=== PATIENT | male | born 1995 | race Two or more races ===

== ENCOUNTER 2019-02-09 11:29 | Inpatient (IN) | payer SELFPAY ==
[~2019-02-09] VITALS: Ht 154.9 cm; Wt 72.6 kg
[2019-02-09] MEDS ORDERED: IV NORMAL SALINE 1000ML BAG 1,000 ML IV SCH (11:53)
[2019-02-09 12:24] LABS: BASO % 0 % (0-3); EOS # 0.2 x10^3/uL (0.0-0.7); EOS % 1 % (0-3); HEMATOCRIT 41.5 % (39.0-53.0); LYMPH % 7 % (24-48); MEAN CORPUSCULAR HEMOGLOBIN 30 pg (25-35); MEAN CORPUSCULAR HGB CONC 34 g/dL (31-37); MEAN CORPUSCULAR VOLUME 90 fL (79-100); MONO # 0.9 x10^3/uL (0.0-1.1); MONO % 7 % (0-9); NEUT # 11.2 x10^3uL (1.8-7.7); NEUT % 84 % (31-73); PLATELET COUNT 180 x10^3/uL (140-400); RED BLOOD COUNT 4.62 x10^6/uL (4.30-5.70); RED CELL DISTRIBUTION WIDTH 13.1 % (11.5-14.5); WHITE BLOOD COUNT 13.3 x10^3/uL (4.0-11.0)
[2019-02-09 12:32] LABS: INFLUENZA A PATIENT NEGATIVE (NEGATIVE); INFLUENZA B PATIENT NEGATIVE (NEGATIVE)
[2019-02-09 12:35] LABS: CALCIUM 8.7 mg/dL (8.5-10.1); CREATININE 1.1 mg/dL (0.7-1.3); GFR 81.6
[2019-02-09] MEDS ORDERED: ACETAMINOPHEN 500 MG TABLET PO ONE (12:45)
[2019-02-09] MEDS ORDERED: KETOROLAC 30 MG/ML VIAL. IV ONE (12:45)
--- NOTE | 2019-02-09 12:46 | RAD ---
Chest, PA and Lateral: Technique: PA and lateral views of the chest were obtained. History: Fever. Comparison: None. Findings: The cardiomediastinal silhouette grossly appears unremarkable. There are faint patchy airspace opacities identified in the right upper lobe of the lung likely pneumonia or atelectasis. IMPRESSION: Faint patchy airspace opacities identified in the lung likely pneumonia or atelectasis. Follow-up to resolution. Electronically signed by: Luis Crane MD (02/09/2019 12:43 PM) [place] [id number]
[2019-02-09 12:48] LABS: ALBUMIN 3.6 g/dL (3.4-5.0); ALBUMIN/GLOBULIN RATIO 1.1 (1.0-1.7); TOTAL BILIRUBIN 0.5 mg/dL (0.2-1.0)
--- NOTE | 2019-02-09 12:53 | PHYS DOC ---
Adult General Chief Complaint Chief Complaint: FEVER HPI HPI Patient is a 23 year old male who presents with complaining of sore throat and fever. The patient states he felt cold while was in an airplane 4 days ago [place] study abroad and since then has had subjective fever, sore throat, headache, body ache, nasal congestion and earache without cough, sick contact, urinary symptom. Patient complaining of one episode of vomiting without diarrhea and constipation. Review of Systems Review of Systems Constitutional: Reports fever and chills Eyes: Denies change in visual acuity, redness, or eye pain [] HENT: Reports nasal congestion or sore throat and earache, no meningeal sign. Respiratory: Denies cough or shortness of breath [] Cardiovascular: No additional information not addressed in HPI [] GI: Denies abdominal pain, nausea, bloody stools or diarrhea and reports vomiting [] : Denies dysuria or hematuria [] Musculoskeletal: Denies back pain or joint pain [] Integument: Denies rash or skin lesions [] Neurologic: Denies headache, focal weakness or sensory changes [] Endocrine: Denies polyuria or polydipsia [] All other systems were reviewed and found to be within normal limits, except as documented in this note. Current Medications Current Medications Current Medications Medications (Trade) Dose Ordered Sig/[place] Start Time Stop Time Status Last Admin Dose Admin Acetaminophen (Tylenol) 1,000 mg 1X ONCE 02/09/19 12:45 02/09/19 12:46 DC 02/09/19 12:42 1,000 MG Azithromycin 250 ml @ 250 mls/hr 1X ONCE 02/09/19 13:00 02/09/19 13:59 DC 02/09/19 13:39 250 MLS/HR Ceftriaxone Sodium (Rocephin) 1 gm 1X ONCE 02/09/19 13:00 02/09/19 13:04 DC 02/09/19 13:25 1 GM Ibuprofen (Motrin) 800 mg 1X ONCE 02/09/19 13:15 02/09/19 13:16 DC 02/09/19 14:01 800 MG Ketorolac Tromethamine (Toradol 30mg Vial) 30 mg 1X ONCE 02/09/19 12:45 02/09/19 12:46 DC 02/09/19 12:43 30 MG Sodium Chloride 1,000 ml @ 150 mls/hr Q6H40M 02/09/19 14:02 02/10/19 14:01 Allergies Allergies Allergies Coded Allergies Type Severity Reaction Last Updated Verified No Known Drug Allergies 02/09/19 No Physical Exam Physical Exam Constitutional: Well developed, well nourished, moderate distress, non-toxic appearance. [] HENT: Normocephalic, atraumatic, bilateral external ears normal, oropharynx dry, no pharyngeal edema, oral exudates, nose normal. [] Eyes: PERRLA, EOMI, conjunctiva normal, no discharge. [] Neck: Normal range of motion, no tenderness, supple, no stridor. [] Cardiovascular: Tachycardia, no murmur [] Lungs & Thorax: Bilateral breath sounds clear to auscultation [] Abdomen: Bowel sounds normal, soft, no tenderness, no masses, no pulsatile masses. [] Skin: Warm, dry, no erythema, no rash. [] Back: No tenderness, no CVA tenderness. [] Extremities: No tenderness, no cyanosis, no clubbing, ROM intact, no edema. [] Neurologic: Alert and oriented X 3, normal motor function, normal sensory function, no focal deficits noted. [] Psychologic: Affect normal, judgement normal, mood normal. [] Current Patient Data Vital Signs Vital Signs Date Time Temp Pulse Resp B/P (MAP) Pulse Ox O2 Delivery O2 Flow Rate FiO2 02/09/19 12:14 103.2 98 18 151/67 (95) 96 Room Air 103.2 Lab Values Laboratory Tests Test 02/09/19 11:50 02/09/19 12:05 02/09/19 12:12 Influenza Type A Antigen Negative (NEGATIVE) Influenza Type B Antigen Negative (NEGATIVE) Group A Streptococcus Rapid Negative (NEGATIVE) White Blood Count 13.3 x10^3/uL (4.0-11.0) H Red Blood Count 4.62 x10^6/uL (4.30-5.70) Hemoglobin 14.0 g/dL (13.0-17.5) Hematocrit 41.5 % (39.0-53.0) Mean Corpuscular Volume 90 fL (79-100) Mean Corpuscular Hemoglobin 30 pg (25-35) Mean Corpuscular Hemoglobin Concent 34 g/dL (31-37) Red Cell Distribution Width 13.1 % (11.5-14.5) Platelet Count 180 x10^3/uL (140-400) Neutrophils (%) (Auto) 84 % (31-73) H Lymphocytes (%) (Auto) 7 % (24-48) L Monocytes (%) (Auto) 7 % (0-9) Eosinophils (%) (Auto) 1 % (0-3) Basophils (%) (Auto) 0 % (0-3) Neutrophils # (Auto) 11.2 x10^3uL (1.8-7.7) H Lymphocytes # (Auto) 1.0 x10^3/uL (1.0-4.8) Monocytes # (Auto) 0.9 x10^3/uL (0.0-1.1) Eosinophils # (Auto) 0.2 x10^3/uL (0.0-0.7) Basophils # (Auto) 0.0 x10^3/uL (0.0-0.2) Sodium Level 138 mmol/L (136-145) Potassium Level 4.0 mmol/L (3.5-5.1) Chloride Level 102 mmol/L (98-107) Carbon Dioxide Level 26 mmol/L (21-32) Anion Gap 10 (6-14) Blood Urea Nitrogen 9 mg/dL (8-26) Creatinine 1.1 mg/dL (0.7-1.3) Estimated GFR (Cockcroft-Gault) 81.6 BUN/Creatinine Ratio 8 (6-20) Glucose Level 160 mg/dL (70-99) H Lactic Acid Level 1.3 mmol/L (0.4-2.0) Calcium Level 8.7 mg/dL (8.5-10.1) Total Bilirubin 0.5 mg/dL (0.2-1.0) Aspartate Amino Transferase (AST) 11 U/L (15-37) L Alanine Aminotransferase (ALT) 22 U/L (16-63) Alkaline Phosphatase 62 U/L (46-116) Total Protein 7.0 g/dL (6.4-8.2) Albumin 3.6 g/dL (3.4-5.0) Albumin/Globulin Ratio 1.1 (1.0-1.7) Laboratory Tests 02/09/19 12:12 Laboratory Tests 02/09/19 12:12 EKG EKG [] Radiology/Procedures Radiology/Procedures [facility] [address] [place] [address] IMAGING REPORT Signed PATIENT: ELY JOAQUIN ACCOUNT: [id number] : 1995 LOCATION: ER AGE: 23 SEX: M EXAM STATUS: REG ER ORD. PHYSICIAN: DANIAL PARK MD REASON: fever PROCEDURE: CHEST PA & LATERAL Chest, PA and Lateral: Technique: PA and lateral views of the chest were obtained. History: Fever. Comparison: None. Findings: The cardiomediastinal silhouette grossly appears unremarkable. There are faint patchy airspace opacities identified in the right upper lobe of the lung likely pneumonia or atelectasis. IMPRESSION: Faint patchy airspace opacities identified in the lung likely pneumonia or atelectasis. Follow-up to resolution. Electronically signed by: Luis Crane MD (02/09/2019 12:43 PM) [place] [id number] DICTATED and SIGNED BY: LUIS CRANE MD DATE: 02/09/19 1159 Course & Med Decision Making Course & Med Decision Making Pertinent Labs and Imaging studies reviewed. (See chart for details) Evaluation of patient in ER showed 23-year-old male patient presented to ER with fever and myalgia and sore throat. Patient had temperature of 103 and treated with IV fluid and Tylenol and Toradol and felt better. Chest x-ray showed right upper lobe infiltration. Lactic acid was unremarkable and flu and strep test was negative. Patient treated with Rocephin and Zithromax in ER. Patient is from out of town and staying in a hotel with his mother.Patient requiring admission for further evaluation and treatment. Discussed with Dr. Decker who is in agreement with admission. Discussed findings and plan with patient and family, who acknowledge understanding and agreement. Dragon Disclaimer Dragon Disclaimer This electronic medical record was generated, in whole or in part, using a voice recognition dictation system. Departure Departure Impression: Primary Impression: Right upper lobe pneumonia Additional Impressions: Fever Myalgia SIRS (systemic inflammatory response syndrome) Disposition: ADMITTED INPATIENT (@1345) Admitting Physician: MELANIE (Dr. Decker accepted admission at 1345) Condition: IMPROVED Referrals: NO PCP (PCP) Problem Qualifiers Primary Impression: Right upper lobe pneumonia Pneumonia type: due to unspecified organism Qualified Codes: J18.1 - Lobar pneumonia, unspecified organism Additional Impressions: Fever Fever type: unspecified Qualified Codes: R50.9 - Fever, unspecified DANIAL PARK MD Feb 09, 2019 12:53
[2019-02-09] MEDS ORDERED: cefTRIAXone IV Push 1 GM VIAL. IVP ONE (13:00)
[2019-02-09] MEDS ORDERED: IV NORMAL SALINE 1000ML BAG 1,000 ML IV ONE (13:00)
[2019-02-09] MEDS ORDERED: AZITHRMYCN 500MG IVPB FOR OMNI 250 ML IV ONE (13:00)
[2019-02-09] MEDS ORDERED: IBUPROFEN 400 MG TABLET. PO ONE (13:15)
--- NOTE | 2019-02-09 14:27 | PDOC1 ---
History and Physical Date of Admission Date of Admission DATE: 02/09/19 TIME: 14:23 Identification/Chief Complaint Chief Complaint Fevers Source Source: Caregiver, Chart review, Patient History of Present Illness History of Present Illness 23-year-old male, otherwise healthy, just got back from [place]. Since then temperature 103.2, headaches, myalgias, arthralgias and poor by mouth. Hence mother brought him to the ER. WBC 13, BP high side, temperature febrile, x-ray shows maybe some haziness right upper lobe. Flu and rapid strep test negative. Admitted with CAP coverage Full code Agreeable to plan of care Discussed with mother, seen at ER no home meds to reconcile Past Medical History Cardiovascular: No pertinent hx Pulmonary: No pertinent hx GI: No pertinent hx Heme/Onc: No pertinent hx Hepatobiliary: No pertinent hx Rheumatologic: No pertinent hx Infectious disease: No pertinent hx ENT: No pertinent hx Renal/: No pertinent hx Endocrine: No pertinent hx Dermatology: No pertinent hx Past Surgical History Past Surgical History: No pertinent history Family History Family History: No Significant, Other (reviewed) Social History Smoke: No ALCOHOL: none Drugs: None Current Problem List Problem List Problems Medical Problems: (1) Fever Status: Acute (2) Myalgia Status: Acute (3) Right upper lobe pneumonia Status: Acute (4) SIRS (systemic inflammatory response syndrome) Status: Acute Current Medications Current Medications Current Medications Acetaminophen (Tylenol) 1,000 mg 1X ONCE PO Last administered on 02/09/19at 12:42; Start 02/09/19 at 12:45; Stop 02/09/19 at 12:46; Status DC Sodium Chloride 1,000 ml @ 1,000 mls/hr Q1H IV Last administered on 02/09/19at 12:41; Start 02/09/19 at 11:53; Stop 02/09/19 at 12:52; Status DC Ketorolac Tromethamine (Toradol 30mg Vial) 30 mg 1X ONCE IV Last administered on 02/09/19at 12:43; Start 02/09/19 at 12:45; Stop 02/09/19 at 12:46; Status DC Sodium Chloride 1,000 ml @ 1,000 mls/hr 1X ONCE IV Last administered on 02/09/19at 13:00; Start 02/09/19 at 13:00; Stop 02/09/19 at 13:59; Status DC Ceftriaxone Sodium (Rocephin) 1 gm 1X ONCE IVP Last administered on 02/09/19at 13:25; Start 02/09/19 at 13:00; Stop 02/09/19 at 13:04; Status DC Azithromycin 250 ml @ 250 mls/hr 1X ONCE IV Last administered on 02/09/19at 13:39; Start 02/09/19 at 13:00; Stop 02/09/19 at 13:59; Status DC Ibuprofen (Motrin) 800 mg 1X ONCE PO Last administered on 02/09/19at 14:01; Start 02/09/19 at 13:15; Stop 02/09/19 at 13:16; Status DC Sodium Chloride 1,000 ml @ 150 mls/hr Q6H40M IV ; Start 02/09/19 at 14:02; Stop 02/10/19 at 14:01 Allergies Allergies: Coded Allergies: No Known Drug Allergies (Unverified , 02/09/19) ROS Review of System As per history of present illness, the rest of ROS 14 point negative Physical Exam General: No acute distress HEENT: Atraumatic, PERRLA Lungs: Clear to auscultation, Normal air movement Heart: S1S2, RRR, no thrills, no rubs, no gallops, no murmurs Cardiovascular: S1, S2 Rectal Exam: not examined PELVIC: Nml ext genitalia Extremities: No clubbing, No cyanosis, No edema, Normal pulses, No tenderness/swelling Skin: No rashes, No breakdown, No significant lesion Neuro: Normal gait, Normal speech, Strength at 5/5 X4 ext, Normal tone, Sensation intact, Cranial nerves 3-12 NL, Reflexes 2+ Psych/Mental Status: Mental status NL, Mood NL Vitals Vitals Vital Signs Date Time Temp Pulse Resp B/P (MAP) Pulse Ox O2 Delivery O2 Flow Rate FiO2 02/09/19 12:14 103.2 98 18 151/67 (95) 96 Room Air 103.2 Labs Labs Laboratory Tests Test 02/09/19 11:50 02/09/19 12:05 02/09/19 12:12 Influenza Type A Antigen Negative (NEGATIVE) Influenza Type B Antigen Negative (NEGATIVE) Group A Streptococcus Rapid Negative (NEGATIVE) White Blood Count 13.3 x10^3/uL (4.0-11.0) Red Blood Count 4.62 x10^6/uL (4.30-5.70) Hemoglobin 14.0 g/dL (13.0-17.5) Hematocrit 41.5 % (39.0-53.0) Mean Corpuscular Volume 90 fL (79-100) Mean Corpuscular Hemoglobin 30 pg (25-35) Mean Corpuscular Hemoglobin Concent 34 g/dL (31-37) Red Cell Distribution Width 13.1 % (11.5-14.5) Platelet Count 180 x10^3/uL (140-400) Neutrophils (%) (Auto) 84 % (31-73) Lymphocytes (%) (Auto) 7 % (24-48) Monocytes (%) (Auto) 7 % (0-9) Eosinophils (%) (Auto) 1 % (0-3) Basophils (%) (Auto) 0 % (0-3) Neutrophils # (Auto) 11.2 x10^3uL (1.8-7.7) Lymphocytes # (Auto) 1.0 x10^3/uL (1.0-4.8) Monocytes # (Auto) 0.9 x10^3/uL (0.0-1.1) Eosinophils # (Auto) 0.2 x10^3/uL (0.0-0.7) Basophils # (Auto) 0.0 x10^3/uL (0.0-0.2) Sodium Level 138 mmol/L (136-145) Potassium Level 4.0 mmol/L (3.5-5.1) Chloride Level 102 mmol/L (98-107) Carbon Dioxide Level 26 mmol/L (21-32) Anion Gap 10 (6-14) Blood Urea Nitrogen 9 mg/dL (8-26) Creatinine 1.1 mg/dL (0.7-1.3) Estimated GFR (Cockcroft-Gault) 81.6 BUN/Creatinine Ratio 8 (6-20) Glucose Level 160 mg/dL (70-99) Lactic Acid Level 1.3 mmol/L (0.4-2.0) Calcium Level 8.7 mg/dL (8.5-10.1) Total Bilirubin 0.5 mg/dL (0.2-1.0) Aspartate Amino Transf (AST/SGOT) 11 U/L (15-37) Alanine Aminotransferase (ALT/SGPT) 22 U/L (16-63) Alkaline Phosphatase 62 U/L (46-116) Total Protein 7.0 g/dL (6.4-8.2) Albumin 3.6 g/dL (3.4-5.0) Albumin/Globulin Ratio 1.1 (1.0-1.7) Laboratory Tests Test 02/09/19 11:50 02/09/19 12:05 02/09/19 12:12 Influenza Type A Antigen Negative (NEGATIVE) Influenza Type B Antigen Negative (NEGATIVE) Group A Streptococcus Rapid Negative (NEGATIVE) White Blood Count 13.3 x10^3/uL (4.0-11.0) Red Blood Count 4.62 x10^6/uL (4.30-5.70) Hemoglobin 14.0 g/dL (13.0-17.5) Hematocrit 41.5 % (39.0-53.0) Mean Corpuscular Volume 90 fL (79-100) Mean Corpuscular Hemoglobin 30 pg (25-35) Mean Corpuscular Hemoglobin Concent 34 g/dL (31-37) Red Cell Distribution Width 13.1 % (11.5-14.5) Platelet Count 180 x10^3/uL (140-400) Neutrophils (%) (Auto) 84 % (31-73) Lymphocytes (%) (Auto) 7 % (24-48) Monocytes (%) (Auto) 7 % (0-9) Eosinophils (%) (Auto) 1 % (0-3) Basophils (%) (Auto) 0 % (0-3) Neutrophils # (Auto) 11.2 x10^3uL (1.8-7.7) Lymphocytes # (Auto) 1.0 x10^3/uL (1.0-4.8) Monocytes # (Auto) 0.9 x10^3/uL (0.0-1.1) Eosinophils # (Auto) 0.2 x10^3/uL (0.0-0.7) Basophils # (Auto) 0.0 x10^3/uL (0.0-0.2) Sodium Level 138 mmol/L (136-145) Potassium Level 4.0 mmol/L (3.5-5.1) Chloride Level 102 mmol/L (98-107) Carbon Dioxide Level 26 mmol/L (21-32) Anion Gap 10 (6-14) Blood Urea Nitrogen 9 mg/dL (8-26) Creatinine 1.1 mg/dL (0.7-1.3) Estimated GFR (Cockcroft-Gault) 81.6 BUN/Creatinine Ratio 8 (6-20) Glucose Level 160 mg/dL (70-99) Lactic Acid Level 1.3 mmol/L (0.4-2.0) Calcium Level 8.7 mg/dL (8.5-10.1) Total Bilirubin 0.5 mg/dL (0.2-1.0) Aspartate Amino Transf (AST/SGOT) 11 U/L (15-37) Alanine Aminotransferase (ALT/SGPT) 22 U/L (16-63) Alkaline Phosphatase 62 U/L (46-116) Total Protein 7.0 g/dL (6.4-8.2) Albumin 3.6 g/dL (3.4-5.0) Albumin/Globulin Ratio 1.1 (1.0-1.7) VTE Prophylaxis Ordered VTE Prophylaxis Devices: Yes VTE Pharmacological Prophylaxi: Yes Assessment/Plan Assessment/Plan CAP, right upper lobe- SIRS no organ dysfunction Elevated BP -no diagnosis of hypertension Febrile episodes Plan: 2MN CAP Coverage, Rocephin and azithromycin IV fluid 1 50 mL and other supportive meds (nebs, tylenol etc) No home meds to reconcile Full code Seen at ER, discussed with mother ARISTEOElliottMAHENDRA MD Feb 09, 2019 14:26
[2019-02-09] MEDS ORDERED: diphenhydrAMINE HCL 25 MG CAPSULE PO PRN (14:30)
[2019-02-09] MEDS ORDERED: ONDANSETRON ODT 4 MG TAB.RAPDIS. PO PRN (14:30)
[2019-02-09] MEDS ORDERED: ALBUTEROL SULFATE 2.5 MG/3 ML NEBU. NEB PRN (14:30)
[2019-02-09] MEDS ORDERED: ACETAMINOPHEN 500 MG TABLET PO PRN (14:30)
[2019-02-09] MEDS ORDERED: ONDANSETRON PF 4 MG/2 ML VIAL. IV PRN (14:30)
--- NOTE | 2019-02-09 16:33 | NUR ---
The patient, ELY JOAQUIN, 23 y/o, M admitted by MAHENDRA ESCALERA MD, was given written information regarding hospital policies, unit procedures and contact persons. Valuables were checked and logged in chart. Pt unable to answer admission questions due to weakness, father at bedside not a good historian. Oriented to hospital and routines.
[2019-02-09] MEDS: IV NORMAL SALINE 1000ML BAG 1,000 ML IV SCH ×2 (17:29→21:10)
[2019-02-09 19:00] VITALS: BP 126/54
[2019-02-09] MEDS: ACETAMINOPHEN/CODEINE 300/30MG TABLET. PO PRN (21:03)
[2019-02-09] MEDS: guaiFENesin DM 200MG/20MG 10 ML SYRUP PO PRN (21:15)
[2019-02-09] MEDS: CYCLOBENZAPRINE 10 MG TABLET. PO PRN (22:52)
[2019-02-09 23:00] VITALS: BP 123/64
[2019-02-10 03:00] VITALS: BP 98/80
[2019-02-10] MEDS: IV NORMAL SALINE 1000ML BAG 1,000 ML IV SCH ×2 (05:22→12:48)
[2019-02-10] MEDS: CYCLOBENZAPRINE 10 MG TABLET. PO PRN ×2 (05:55→21:34)
[2019-02-10] MEDS: IBUPROFEN 200 MG TABLET. PO PRN (05:57)
[2019-02-10 06:03] LABS: BASO % 0 % (0-3); EOS # 0.4 x10^3/uL (0.0-0.7); EOS % 4 % (0-3); HEMOGLOBIN 13.6 g/dL (13.0-17.5); LYMPH # 1.4 x10^3/uL (1.0-4.8); LYMPH % 13 % (24-48); MEAN CORPUSCULAR HEMOGLOBIN 30 pg (25-35); MEAN CORPUSCULAR HGB CONC 34 g/dL (31-37); MEAN CORPUSCULAR VOLUME 90 fL (79-100); MONO % 9 % (0-9); NEUT # 8.1 x10^3uL (1.8-7.7); NEUT % 74 % (31-73); PLATELET COUNT 172 x10^3/uL (140-400); RED BLOOD COUNT 4.46 x10^6/uL (4.30-5.70); RED CELL DISTRIBUTION WIDTH 13.2 % (11.5-14.5); WHITE BLOOD COUNT 10.9 x10^3/uL (4.0-11.0)
[2019-02-10 06:28] LABS: CALCIUM 8.4 mg/dL (8.5-10.1); CREATININE 0.7 mg/dL (0.7-1.3); GFR 137.4; POTASSIUM 4.2 mmol/L (3.5-5.1)
[2019-02-10 07:00] VITALS: BP 125/60
[2019-02-10] MEDS: ACETAMINOPHEN/CODEINE 300/30MG TABLET. PO PRN ×3 (09:43→22:23)
[2019-02-10] MEDS: guaiFENesin DM 200MG/20MG 10 ML SYRUP PO PRN ×3 (09:43→21:34)
[2019-02-10] MEDS: AZITHROMYCIN 250 MG TABLET. PO SCH (09:44)
[2019-02-10] MEDS ORDERED: PHENOL ORAL SPRAY 177ML BOTTLE. PO PRN (10:15)
[2019-02-10] MEDS: BENZOCAINE/MENTHOL LOZENGE. PO PRN ×4 (11:01→20:37)
[2019-02-10 12:00] VITALS: BP 116/53
[2019-02-10] MEDS: cefTRIAXone IV Push 1 GM VIAL. IVP SCH (12:48)
--- NOTE | 2019-02-10 13:25 | PDOC ---
[employer] PROGRESS NOTE Chief Complaint Chief Complaint CAP, right upper lobe- SIRS no organ dysfunction Elevated BP -no diagnosis of hypertension Febrile episodes History of Present Illness History of Present Illness Patient seen and examined Discussed with RN His mom is present He has a harsh cough Vitals Vitals Vital Signs Date Time Temp Pulse Resp B/P (MAP) Pulse Ox O2 Delivery O2 Flow Rate FiO2 02/10/19 11:02 Room Air 02/10/19 07:00 98.7 56 14 125/60 (81) 95 98.7 Physical Exam General: No acute distress Heart: Regular rate, Normal S1, Normal S2 Lungs: Crackles Abdomen: Normal bowel sounds, Soft Extremities: No clubbing, No cyanosis, No edema, Normal pulses, No tenderness/swelling Skin: No rashes, No breakdown, No significant lesion Labs Labs: Laboratory Tests Test 02/10/19 05:05 White Blood Count 10.9 x10^3/uL (4.0-11.0) Red Blood Count 4.46 x10^6/uL (4.30-5.70) Hemoglobin 13.6 g/dL (13.0-17.5) Hematocrit 40.0 % (39.0-53.0) Mean Corpuscular Volume 90 fL (79-100) Mean Corpuscular Hemoglobin 30 pg (25-35) Mean Corpuscular Hemoglobin Concent 34 g/dL (31-37) Red Cell Distribution Width 13.2 % (11.5-14.5) Platelet Count 172 x10^3/uL (140-400) Neutrophils (%) (Auto) 74 % (31-73) Lymphocytes (%) (Auto) 13 % (24-48) Monocytes (%) (Auto) 9 % (0-9) Eosinophils (%) (Auto) 4 % (0-3) Basophils (%) (Auto) 0 % (0-3) Neutrophils # (Auto) 8.1 x10^3uL (1.8-7.7) Lymphocytes # (Auto) 1.4 x10^3/uL (1.0-4.8) Monocytes # (Auto) 1.0 x10^3/uL (0.0-1.1) Eosinophils # (Auto) 0.4 x10^3/uL (0.0-0.7) Basophils # (Auto) 0.0 x10^3/uL (0.0-0.2) Sodium Level 143 mmol/L (136-145) Potassium Level 4.2 mmol/L (3.5-5.1) Chloride Level 110 mmol/L (98-107) Carbon Dioxide Level 24 mmol/L (21-32) Anion Gap 9 (6-14) Blood Urea Nitrogen 7 mg/dL (8-26) Creatinine 0.7 mg/dL (0.7-1.3) Estimated GFR (Cockcroft-Gault) 137.4 Glucose Level 113 mg/dL (70-99) Calcium Level 8.4 mg/dL (8.5-10.1) Assessment and Plan Assessmemt and Plan Problems Medical Problems: (1) Fever Status: Acute (2) Myalgia Status: Acute (3) Right upper lobe pneumonia Status: Acute (4) SIRS (systemic inflammatory response syndrome) Status: Acute CAP, right upper lobe- SIRS no organ dysfunction Elevated BP -no diagnosis of hypertension Febrile episodes Plan Rocephin and azithromycin IV fluid Duo nebs Oxygen Discussed with patient's mother and nurse Consult pulmonary Full code Comment Review of Relevant I have reviewed the following items brittany (where applicable) has been applied. Labs Laboratory Tests Test 02/09/19 11:50 02/09/19 12:05 02/09/19 12:12 02/10/19 05:05 Influenza Type A Antigen Negative (NEGATIVE) Influenza Type B Antigen Negative (NEGATIVE) Group A Streptococcus Rapid Negative (NEGATIVE) White Blood Count 13.3 x10^3/uL (4.0-11.0) 10.9 x10^3/uL (4.0-11.0) Red Blood Count 4.62 x10^6/uL (4.30-5.70) 4.46 x10^6/uL (4.30-5.70) Hemoglobin 14.0 g/dL (13.0-17.5) 13.6 g/dL (13.0-17.5) Hematocrit 41.5 % (39.0-53.0) 40.0 % (39.0-53.0) Mean Corpuscular Volume 90 fL (79-100) 90 fL (79-100) Mean Corpuscular Hemoglobin 30 pg (25-35) 30 pg (25-35) Mean Corpuscular Hemoglobin Concent 34 g/dL (31-37) 34 g/dL (31-37) Red Cell Distribution Width 13.1 % (11.5-14.5) 13.2 % (11.5-14.5) Platelet Count 180 x10^3/uL (140-400) 172 x10^3/uL (140-400) Neutrophils (%) (Auto) 84 % (31-73) 74 % (31-73) Lymphocytes (%) (Auto) 7 % (24-48) 13 % (24-48) Monocytes (%) (Auto) 7 % (0-9) 9 % (0-9) Eosinophils (%) (Auto) 1 % (0-3) 4 % (0-3) Basophils (%) (Auto) 0 % (0-3) 0 % (0-3) Neutrophils # (Auto) 11.2 x10^3uL (1.8-7.7) 8.1 x10^3uL (1.8-7.7) Lymphocytes # (Auto) 1.0 x10^3/uL (1.0-4.8) 1.4 x10^3/uL (1.0-4.8) Monocytes # (Auto) 0.9 x10^3/uL (0.0-1.1) 1.0 x10^3/uL (0.0-1.1) Eosinophils # (Auto) 0.2 x10^3/uL (0.0-0.7) 0.4 x10^3/uL (0.0-0.7) Basophils # (Auto) 0.0 x10^3/uL (0.0-0.2) 0.0 x10^3/uL (0.0-0.2) Sodium Level 138 mmol/L (136-145) 143 mmol/L (136-145) Potassium Level 4.0 mmol/L (3.5-5.1) 4.2 mmol/L (3.5-5.1) Chloride Level 102 mmol/L (98-107) 110 mmol/L (98-107) Carbon Dioxide Level 26 mmol/L (21-32) 24 mmol/L (21-32) Anion Gap 10 (6-14) 9 (6-14) Blood Urea Nitrogen 9 mg/dL (8-26) 7 mg/dL (8-26) Creatinine 1.1 mg/dL (0.7-1.3) 0.7 mg/dL (0.7-1.3) Estimated GFR (Cockcroft-Gault) 81.6 137.4 BUN/Creatinine Ratio 8 (6-20) Glucose Level 160 mg/dL (70-99) 113 mg/dL (70-99) Lactic Acid Level 1.3 mmol/L (0.4-2.0) Calcium Level 8.7 mg/dL (8.5-10.1) 8.4 mg/dL (8.5-10.1) Total Bilirubin 0.5 mg/dL (0.2-1.0) Aspartate Amino Transf (AST/SGOT) 11 U/L (15-37) Alanine Aminotransferase (ALT/SGPT) 22 U/L (16-63) Alkaline Phosphatase 62 U/L (46-116) Total Protein 7.0 g/dL (6.4-8.2) Albumin 3.6 g/dL (3.4-5.0) Albumin/Globulin Ratio 1.1 (1.0-1.7) Laboratory Tests Test 02/10/19 05:05 White Blood Count 10.9 x10^3/uL (4.0-11.0) Red Blood Count 4.46 x10^6/uL (4.30-5.70) Hemoglobin 13.6 g/dL (13.0-17.5) Hematocrit 40.0 % (39.0-53.0) Mean Corpuscular Volume 90 fL (79-100) Mean Corpuscular Hemoglobin 30 pg (25-35) Mean Corpuscular Hemoglobin Concent 34 g/dL (31-37) Red Cell Distribution Width 13.2 % (11.5-14.5) Platelet Count 172 x10^3/uL (140-400) Neutrophils (%) (Auto) 74 % (31-73) Lymphocytes (%) (Auto) 13 % (24-48) Monocytes (%) (Auto) 9 % (0-9) Eosinophils (%) (Auto) 4 % (0-3) Basophils (%) (Auto) 0 % (0-3) Neutrophils # (Auto) 8.1 x10^3uL (1.8-7.7) Lymphocytes # (Auto) 1.4 x10^3/uL (1.0-4.8) Monocytes # (Auto) 1.0 x10^3/uL (0.0-1.1) Eosinophils # (Auto) 0.4 x10^3/uL (0.0-0.7) Basophils # (Auto) 0.0 x10^3/uL (0.0-0.2) Sodium Level 143 mmol/L (136-145) Potassium Level 4.2 mmol/L (3.5-5.1) Chloride Level 110 mmol/L (98-107) Carbon Dioxide Level 24 mmol/L (21-32) Anion Gap 9 (6-14) Blood Urea Nitrogen 7 mg/dL (8-26) Creatinine 0.7 mg/dL (0.7-1.3) Estimated GFR (Cockcroft-Gault) 137.4 Glucose Level 113 mg/dL (70-99) Calcium Level 8.4 mg/dL (8.5-10.1) Microbiology 02/09/19 Blood Culture - Preliminary, Resulted NO GROWTH AFTER 1 DAY Medications Current Medications Acetaminophen (Tylenol) 1,000 mg 1X ONCE PO Last administered on 02/09/19at 12:42; Start 02/09/19 at 12:45; Stop 02/09/19 at 12:46; Status DC Sodium Chloride 1,000 ml @ 1,000 mls/hr Q1H IV Last administered on 02/09/19at 12:41; Start 02/09/19 at 11:53; Stop 02/09/19 at 12:52; Status DC Ketorolac Tromethamine (Toradol 30mg Vial) 30 mg 1X ONCE IV Last administered on 02/09/19at 12:43; Start 02/09/19 at 12:45; Stop 02/09/19 at 12:46; Status DC Sodium Chloride 1,000 ml @ 1,000 mls/hr 1X ONCE IV Last administered on 02/09/19at 13:00; Start 02/09/19 at 13:00; Stop 02/09/19 at 13:59; Status DC Ceftriaxone Sodium (Rocephin) 1 gm 1X ONCE IVP Last administered on 02/09/19at 13:25; Start 02/09/19 at 13:00; Stop 02/09/19 at 13:04; Status DC Azithromycin 250 ml @ 250 mls/hr 1X ONCE IV Last administered on 02/09/19 13:39; Start 02/09/19 at 13:00; Stop 02/09/19 at 13:59; Status DC Ibuprofen (Motrin) 800 mg 1X ONCE PO Last administered on 02/09/19 14:01; Start 02/09/19 at 13:15; Stop 02/09/19 at 13:16; Status DC Sodium Chloride 1,000 ml @ 150 mls/hr Q6H40M IV Last administered on 02/10/19at 12:48; Start 02/09/19 at 14:02; Stop 02/10/19 at 14:01 Ibuprofen (Motrin) 600 mg PRN Q6HRS PRN PO INFLAMMATION Last administered on 02/10/19 05:57; Start 02/09/19 at 14:30 Acetaminophen (Tylenol) 500 mg PRN Q6HRS PRN PO MILD PAIN / TEMP; Start 02/09/19 at 14:30 Acetaminophen/ Codeine Phosphate (Tylenol #3) 1 tab PRN Q6HRS PRN PO MODERATE - SEVERE PAIN Last administered on 02/10/19 09:43; Start 02/09/19 at 14:30 Ondansetron HCl (Zofran) 4 mg PRN Q6HRS PRN IV NAUSEA/VOMITING; Start 02/09/19 at 14:30 Ondansetron HCl (Zofran Odt) 4 mg PRN Q6HRS PRN PO NAUSEA/VOMITING; Start 01/22 at 14:30 Ceftriaxone Sodium (Rocephin) 1 gm Q24H IVP Last administered on 02/10/19 12:48; Start 02/10/19 at 13:00 Azithromycin (Zithromax) 250 mg DAILY PO Last administered on 02/10/19 09:44; Start 02/10/19 at 09:00 Albuterol Sulfate (Ventolin Neb Soln) 2.5 mg PRN Q4HRS PRN NEB SHORTNESS OF BREATH Last administered on 02/09/19 21:50; Start 02/09/19 at 14:30 Guaifenesin (Robitussin Dm) 10 ml PRN Q6HRS PRN PO COUGH Last administered on 6/21/19at 09:43; Start 02/09/19 at 14:30 Diphenhydramine HCl (Benadryl) 25 mg PRN QHS PRN PO INSOMNIA Last administered on 02/09/19at 20:59; Start 02/09/19 at 14:30 Cyclobenzaprine HCl (Flexeril) 10 mg TID PRN PRN PO MUSCLE SPASMS Last administered on 02/10/19at 05:55; Start 02/09/19 at 22:45 Throat Lozenges (Chloraseptic) 1 spray PRN Q2HR PRN PO SORE THROAT Last administered on 02/10/19at 12:48; Start 02/10/19 at 10:15 Throat Lozenges (Cepacol Sore Throat Lozenge) 1 marj PRN Q2HRS PRN PO SORE THROAT Last administered on 02/10/19at 13:21; Start 02/10/19 at 10:15 Lactobacillus Rhamnosus (Culturelle) 1 cap BID PO ; Start 02/10/19 at 21:00 Vitals/I & O Vital Sign - Last 24 Hours 02/09/19 02/09/19 02/09/19 02/09/19 16:43 19:00 20:00 21:03 Temp 97.7 97.7 Pulse 73 Resp 18 18 B/P (MAP) 126/54 (78) Pulse Ox 97 O2 Delivery Room Air Room Air Room Air Room Air 02/09/19 02/09/19 02/10/19 02/10/19 22:03 23:00 03:00 07:00 Temp 98.5 98.7 98.7 98.5 98.7 98.7 Pulse 70 63 56 Resp 18 18 18 14 B/P (MAP) 123/64 (83) 98/80 (86) 125/60 (81) Pulse Ox 97 98 96 95 O2 Delivery Room Air Room Air Room Air 02/10/19 02/10/19 02/10/19 08:00 09:43 11:02 O2 Delivery Room Air Room Air Room Air Intake and Output 02/09/19 02/09/19 02/10/19 15:00 23:00 07:00 Intake Total 360 ml 600 ml Balance 360 ml 600 ml CATARINA TARANGO III DO Feb 10, 2019 13:25
[2019-02-10 15:00] VITALS: BP 132/69
[2019-02-10] MEDS: ASCORBIC ACID 500 MG TABLET PO SCH (15:41)
[2019-02-10] MEDS: MULTIVITAMIN with MINERAL TABLET. PO SCH (15:41)
[2019-02-10] MEDS: CALCIUM CARB/VIT D3 500/200 TABLET. PO SCH (15:41)
--- NOTE | 2019-02-10 17:09 | PDOC ---
PULMONARY PROGRESS NOTES Vitals Vital Signs Date Time Temp Pulse Resp B/P (MAP) Pulse Ox O2 Delivery O2 Flow Rate FiO2 02/10/19 15:43 Room Air 02/10/19 15:00 99.0 51 18 132/69 (90) 97 99.0 Lungs: Crackles Cardiovascular: S1, S2 Labs Laboratory Tests Test 02/09/19 11:50 02/09/19 12:05 02/09/19 12:12 02/10/19 05:05 Influenza Type A Antigen Negative (NEGATIVE) Influenza Type B Antigen Negative (NEGATIVE) Group A Streptococcus Rapid Negative (NEGATIVE) White Blood Count 13.3 x10^3/uL (4.0-11.0) 10.9 x10^3/uL (4.0-11.0) Red Blood Count 4.62 x10^6/uL (4.30-5.70) 4.46 x10^6/uL (4.30-5.70) Hemoglobin 14.0 g/dL (13.0-17.5) 13.6 g/dL (13.0-17.5) Hematocrit 41.5 % (39.0-53.0) 40.0 % (39.0-53.0) Mean Corpuscular Volume 90 fL (79-100) 90 fL (79-100) Mean Corpuscular Hemoglobin 30 pg (25-35) 30 pg (25-35) Mean Corpuscular Hemoglobin Concent 34 g/dL (31-37) 34 g/dL (31-37) Red Cell Distribution Width 13.1 % (11.5-14.5) 13.2 % (11.5-14.5) Platelet Count 180 x10^3/uL (140-400) 172 x10^3/uL (140-400) Neutrophils (%) (Auto) 84 % (31-73) 74 % (31-73) Lymphocytes (%) (Auto) 7 % (24-48) 13 % (24-48) Monocytes (%) (Auto) 7 % (0-9) 9 % (0-9) Eosinophils (%) (Auto) 1 % (0-3) 4 % (0-3) Basophils (%) (Auto) 0 % (0-3) 0 % (0-3) Neutrophils # (Auto) 11.2 x10^3uL (1.8-7.7) 8.1 x10^3uL (1.8-7.7) Lymphocytes # (Auto) 1.0 x10^3/uL (1.0-4.8) 1.4 x10^3/uL (1.0-4.8) Monocytes # (Auto) 0.9 x10^3/uL (0.0-1.1) 1.0 x10^3/uL (0.0-1.1) Eosinophils # (Auto) 0.2 x10^3/uL (0.0-0.7) 0.4 x10^3/uL (0.0-0.7) Basophils # (Auto) 0.0 x10^3/uL (0.0-0.2) 0.0 x10^3/uL (0.0-0.2) Sodium Level 138 mmol/L (136-145) 143 mmol/L (136-145) Potassium Level 4.0 mmol/L (3.5-5.1) 4.2 mmol/L (3.5-5.1) Chloride Level 102 mmol/L (98-107) 110 mmol/L (98-107) Carbon Dioxide Level 26 mmol/L (21-32) 24 mmol/L (21-32) Anion Gap 10 (6-14) 9 (6-14) Blood Urea Nitrogen 9 mg/dL (8-26) 7 mg/dL (8-26) Creatinine 1.1 mg/dL (0.7-1.3) 0.7 mg/dL (0.7-1.3) Estimated GFR (Cockcroft-Gault) 81.6 137.4 BUN/Creatinine Ratio 8 (6-20) Glucose Level 160 mg/dL (70-99) 113 mg/dL (70-99) Lactic Acid Level 1.3 mmol/L (0.4-2.0) Calcium Level 8.7 mg/dL (8.5-10.1) 8.4 mg/dL (8.5-10.1) Total Bilirubin 0.5 mg/dL (0.2-1.0) Aspartate Amino Transf (AST/SGOT) 11 U/L (15-37) Alanine Aminotransferase (ALT/SGPT) 22 U/L (16-63) Alkaline Phosphatase 62 U/L (46-116) Total Protein 7.0 g/dL (6.4-8.2) Albumin 3.6 g/dL (3.4-5.0) Albumin/Globulin Ratio 1.1 (1.0-1.7) Laboratory Tests Test 02/10/19 05:05 White Blood Count 10.9 x10^3/uL (4.0-11.0) Red Blood Count 4.46 x10^6/uL (4.30-5.70) Hemoglobin 13.6 g/dL (13.0-17.5) Hematocrit 40.0 % (39.0-53.0) Mean Corpuscular Volume 90 fL (79-100) Mean Corpuscular Hemoglobin 30 pg (25-35) Mean Corpuscular Hemoglobin Concent 34 g/dL (31-37) Red Cell Distribution Width 13.2 % (11.5-14.5) Platelet Count 172 x10^3/uL (140-400) Neutrophils (%) (Auto) 74 % (31-73) Lymphocytes (%) (Auto) 13 % (24-48) Monocytes (%) (Auto) 9 % (0-9) Eosinophils (%) (Auto) 4 % (0-3) Basophils (%) (Auto) 0 % (0-3) Neutrophils # (Auto) 8.1 x10^3uL (1.8-7.7) Lymphocytes # (Auto) 1.4 x10^3/uL (1.0-4.8) Monocytes # (Auto) 1.0 x10^3/uL (0.0-1.1) Eosinophils # (Auto) 0.4 x10^3/uL (0.0-0.7) Basophils # (Auto) 0.0 x10^3/uL (0.0-0.2) Sodium Level 143 mmol/L (136-145) Potassium Level 4.2 mmol/L (3.5-5.1) Chloride Level 110 mmol/L (98-107) Carbon Dioxide Level 24 mmol/L (21-32) Anion Gap 9 (6-14) Blood Urea Nitrogen 7 mg/dL (8-26) Creatinine 0.7 mg/dL (0.7-1.3) Estimated GFR (Cockcroft-Gault) 137.4 Glucose Level 113 mg/dL (70-99) Calcium Level 8.4 mg/dL (8.5-10.1) Impression . CONSULT DICTATED PNEUMONIA THANKS TIFFANIE JONES MD Feb 10, 2019 17:09
--- NOTE | 2019-02-10 18:06 | CONS ---
DATE OF CONSULTATION: 02/10/2019 ATTENDING PHYSICIAN: Dr. Maza. CONSULTING PHYSICIAN: Dr. Jones. REASON FOR CONSULTATION: The patient is seen in pulmonary consultation at the request of Dr. Maza for possible pneumonia. Prior to HISTORY OF PRESENT ILLNESS: The patient is a 23-year-old healthy individual that recently returned from [place]. He attends school in [place]. He noticed to have a temperature of 103, headaches, myalgias and arthralgias. He presented to the Emergency Room. The chest x-ray was reviewed. There is faint patchy airspace opacities in the right upper lobe. I was asked to see him in consultation. The patient is currently coughing up some green-yellow sputum. His appetite is relatively poor. He denies nausea, vomiting, diarrhea. PAST MEDICAL HISTORY: No significant past medical history. PAST SURGICAL HISTORY: None. ALLERGIES: No known drug allergies. CURRENT MEDICATIONS: List was reviewed. He is currently being treated with azithromycin and Rocephin. REVIEW OF SYSTEMS: As indicated above, otherwise, a 10-point system was reviewed and negative. PHYSICAL EXAMINATION: VITAL SIGNS: Stable. O2 saturation was greater than 92%. HEENT: Eyes, the sclerae were nonicteric. NECK: Jugular venous distention was not elevated. No lymphadenopathy. CHEST: Full expansion. LUNGS: Adequate airway flow with no wheezes. CARDIOVASCULAR: Regular rate and rhythm with S1, S2, no S3. ABDOMEN: Soft, nontender, nondistended. EXTREMITIES: No clubbing, cyanosis or edema. LABORATORY DATA: Chest x-ray reviewed as indicated above. Labs were reviewed. IMPRESSION: 1. Pneumonia, suspect Gram-positive, possibly gram negative. 2. Fever. 3. Leukocytosis. 4. Negative serology for group A strep and influenza. PLAN: 1. Continue current antibiotics. 2. Follow clinical course. 3. Home once afebrile for 24 hours on oral antibiotics. I do appreciate the privilege in sharing in the patient's care. TIFFANIE JONES MD DR: [email or web address]/delfino JOB#: [id number] / [id number]
[2019-02-10 19:00] VITALS: BP 131/40
[2019-02-10] MEDS: LACTOBACILLUS RHAMNOSUS GG 1 CAPSULE. PO SCH (20:38)
[2019-02-10] MEDS: ZOLPIDEM 5 MG TABLET. PO PRN (21:28)
--- NOTE | 2019-02-10 22:30 | NUR ---
Patient and pts mother adamant that pt not be awakened for 0300 vitals. Explained unit vitals policy to pt and pts mother, but they still refuse to allow 0300 vitals so that pt can get adequate rest. Asked pt and pts mother to call us if pt happens to wake up to use the bathroom so we can obtain pts vitals at that time. Pts mother states she will just feel his head for fever, but again explained that we could just get a set of vitals and take his temperature if he is awake. Pts mother nods head in understanding. Will monitor.
[2019-02-10 23:00] VITALS: BP 129/62
[2019-02-11 07:00] VITALS: BP 142/71
[2019-02-11] MEDS: ASCORBIC ACID 500 MG TABLET PO SCH (08:55)
[2019-02-11] MEDS: MULTIVITAMIN with MINERAL TABLET. PO SCH (08:55)
[2019-02-11] MEDS: LACTOBACILLUS RHAMNOSUS GG 1 CAPSULE. PO SCH ×2 (08:55→22:03)
[2019-02-11] MEDS: AZITHROMYCIN 250 MG TABLET. PO SCH (08:55)
[2019-02-11] MEDS: CALCIUM CARB/VIT D3 500/200 TABLET. PO SCH (08:56)
[2019-02-11] MEDS: CYCLOBENZAPRINE 10 MG TABLET. PO PRN ×3 (09:22→23:56)
[2019-02-11] MEDS: ACETAMINOPHEN/CODEINE 300/30MG TABLET. PO PRN ×3 (09:22→22:04)
--- NOTE | 2019-02-11 10:47 | PDOC ---
PROGRESS NOTES Chief Complaint Chief Complaint CAP, right upper lobe- SIRS no organ dysfunction Elevated BP -no diagnosis of hypertension Febrile episodes History of Present Illness History of Present Illness Patient seen and examined Discussed with RN His mom is present He has a harsh cough Chest, PA and Lateral: Technique: PA and lateral views of the chest were obtained. History: Fever. Comparison: None. Findings: The cardiomediastinal silhouette grossly appears unremarkable. There are faint patchy airspace opacities identified in the right upper lobe of the lung likely pneumonia or atelectasis. IMPRESSION: Faint patchy airspace opacities identified in the lung likely pneumonia or atelectasis. Follow-up to resolution. Electronically signed by: Luis Crane MD (02/09/2019 12:43 PM) [facility] Vitals Vitals Vital Signs Date Time Temp Pulse Resp B/P (MAP) Pulse Ox O2 Delivery O2 Flow Rate FiO2 02/11/19 09:22 Room Air 02/11/19 07:00 97.7 73 18 142/71 (94) 98 97.7 Physical Exam General: Alert, Oriented X3, Cooperative, No acute distress Heart: Regular rate, Normal S1, Normal S2 Lungs: Crackles Abdomen: Normal bowel sounds, Soft Extremities: No clubbing, No cyanosis, No edema, Normal pulses, No tenderness/swelling Skin: No rashes, No breakdown, No significant lesion Labs LABS Constitutional: Reports fever and chills less Eyes: Denies change in visual acuity, redness, or eye pain [] HENT: Reports nasal congestion or sore throat and earache, no meningeal sign. Respiratory: Denies cough or shortness of breath [] Cardiovascular: No additional information not addressed in HPI [] GI: Denies abdominal pain, nausea, bloody stools or diarrhea and reports vomiting [] : Denies dysuria or hematuria [] Musculoskeletal: Denies back pain or joint pain [] Integument: Denies rash or skin lesions [] Neurologic: Denies headache, focal weakness or sensory changes [] Endocrine: Denies polyuria or polydipsia [] All other systems were reviewed and found to be within norm Assessment and Plan Assessmemt and Plan Problems Medical Problems: (1) Fever Status: Acute (2) Myalgia Status: Acute (3) Right upper lobe pneumonia Status: Acute (4) SIRS (systemic inflammatory response syndrome) Status: Acute Comment Review of Relevant I have reviewed the following items brittany (where applicable) has been applied. Labs Laboratory Tests Test 02/09/19 11:50 02/09/19 12:05 02/09/19 12:12 02/10/19 05:05 Influenza Type A Antigen Negative (NEGATIVE) Influenza Type B Antigen Negative (NEGATIVE) Group A Streptococcus Rapid Negative (NEGATIVE) White Blood Count 13.3 x10^3/uL (4.0-11.0) 10.9 x10^3/uL (4.0-11.0) Red Blood Count 4.62 x10^6/uL (4.30-5.70) 4.46 x10^6/uL (4.30-5.70) Hemoglobin 14.0 g/dL (13.0-17.5) 13.6 g/dL (13.0-17.5) Hematocrit 41.5 % (39.0-53.0) 40.0 % (39.0-53.0) Mean Corpuscular Volume 90 fL (79-100) 90 fL (79-100) Mean Corpuscular Hemoglobin 30 pg (25-35) 30 pg (25-35) Mean Corpuscular Hemoglobin Concent 34 g/dL (31-37) 34 g/dL (31-37) Red Cell Distribution Width 13.1 % (11.5-14.5) 13.2 % (11.5-14.5) Platelet Count 180 x10^3/uL (140-400) 172 x10^3/uL (140-400) Neutrophils (%) (Auto) 84 % (31-73) 74 % (31-73) Lymphocytes (%) (Auto) 7 % (24-48) 13 % (24-48) Monocytes (%) (Auto) 7 % (0-9) 9 % (0-9) Eosinophils (%) (Auto) 1 % (0-3) 4 % (0-3) Basophils (%) (Auto) 0 % (0-3) 0 % (0-3) Neutrophils # (Auto) 11.2 x10^3uL (1.8-7.7) 8.1 x10^3uL (1.8-7.7) Lymphocytes # (Auto) 1.0 x10^3/uL (1.0-4.8) 1.4 x10^3/uL (1.0-4.8) Monocytes # (Auto) 0.9 x10^3/uL (0.0-1.1) 1.0 x10^3/uL (0.0-1.1) Eosinophils # (Auto) 0.2 x10^3/uL (0.0-0.7) 0.4 x10^3/uL (0.0-0.7) Basophils # (Auto) 0.0 x10^3/uL (0.0-0.2) 0.0 x10^3/uL (0.0-0.2) Sodium Level 138 mmol/L (136-145) 143 mmol/L (136-145) Potassium Level 4.0 mmol/L (3.5-5.1) 4.2 mmol/L (3.5-5.1) Chloride Level 102 mmol/L (98-107) 110 mmol/L (98-107) Carbon Dioxide Level 26 mmol/L (21-32) 24 mmol/L (21-32) Anion Gap 10 (6-14) 9 (6-14) Blood Urea Nitrogen 9 mg/dL (8-26) 7 mg/dL (8-26) Creatinine 1.1 mg/dL (0.7-1.3) 0.7 mg/dL (0.7-1.3) Estimated GFR (Cockcroft-Gault) 81.6 137.4 BUN/Creatinine Ratio 8 (6-20) Glucose Level 160 mg/dL (70-99) 113 mg/dL (70-99) Lactic Acid Level 1.3 mmol/L (0.4-2.0) Calcium Level 8.7 mg/dL (8.5-10.1) 8.4 mg/dL (8.5-10.1) Total Bilirubin 0.5 mg/dL (0.2-1.0) Aspartate Amino Transf (AST/SGOT) 11 U/L (15-37) Alanine Aminotransferase (ALT/SGPT) 22 U/L (16-63) Alkaline Phosphatase 62 U/L (46-116) Total Protein 7.0 g/dL (6.4-8.2) Albumin 3.6 g/dL (3.4-5.0) Albumin/Globulin Ratio 1.1 (1.0-1.7) Microbiology 02/09/19 Blood Culture - Preliminary, Resulted NO GROWTH AFTER 1 DAY Medications Current Medications Acetaminophen (Tylenol) 1,000 mg 1X ONCE PO Last administered on 02/09/19at 12:42; Start 02/09/19 at 12:45; Stop 02/09/19 at 12:46; Status DC Sodium Chloride 1,000 ml @ 1,000 mls/hr Q1H IV Last administered on 02/09/19at 12:41; Start 02/09/19 at 11:53; Stop 02/09/19 at 12:52; Status DC Ketorolac Tromethamine (Toradol 30mg Vial) 30 mg 1X ONCE IV Last administered on 02/09/19at 12:43; Start 02/09/19 at 12:45; Stop 02/09/19 at 12:46; Status DC Sodium Chloride 1,000 ml @ 1,000 mls/hr 1X ONCE IV Last administered on 02/09/19at 13:00; Start 02/09/19 at 13:00; Stop 02/09/19 at 13:59; Status DC Ceftriaxone Sodium (Rocephin) 1 gm 1X ONCE IVP Last administered on 02/09/19at 13:25; Start 02/09/19 at 13:00; Stop 02/09/19 at 13:04; Status DC Azithromycin 250 ml @ 250 mls/hr 1X ONCE IV Last administered on 02/09/19at 13:39; Start 02/09/19 at 13:00; Stop 02/09/19 at 13:59; Status DC Ibuprofen (Motrin) 800 mg 1X ONCE PO Last administered on 02/09/19at 14:01; Start 02/09/19 at 13:15; Stop 02/09/19 at 13:16; Status DC Sodium Chloride 1,000 ml @ 150 mls/hr Q6H40M IV Last administered on 02/10/19at 12:48; Start 02/09/19 at 14:02; Stop 02/10/19 at 14:01; Status DC Ibuprofen (Motrin) 600 mg PRN Q6HRS PRN PO INFLAMMATION Last administered on 02/10/19at 05:57; Start 02/09/19 at 14:30 Acetaminophen (Tylenol) 500 mg PRN Q6HRS PRN PO MILD PAIN / TEMP; Start 02/09/19 at 14:30 Acetaminophen/ Codeine Phosphate (Tylenol #3) 1 tab PRN Q6HRS PRN PO MODERATE - SEVERE PAIN Last administered on 02/11/19 09:22; Start 02/09/19 at 14:30 Ondansetron HCl (Zofran) 4 mg PRN Q6HRS PRN IV NAUSEA/VOMITING; Start 02/09/19 at 14:30 Ondansetron HCl (Zofran Odt) 4 mg PRN Q6HRS PRN PO NAUSEA/VOMITING; Start 02/09/19 at 14:30 Ceftriaxone Sodium (Rocephin) 1 gm Q24H IVP Last administered on 02/10/19 12:48; Start 02/10/19 at 13:00 Azithromycin (Zithromax) 250 mg DAILY PO Last administered on 02/11/19 08:55; Start 02/10/19 at 09:00 Albuterol Sulfate (Ventolin Neb Soln) 2.5 mg PRN Q4HRS PRN NEB SHORTNESS OF BREATH Last administered on 02/09/19 21:50; Start 02/09/19 at 14:30 Guaifenesin (Robitussin Dm) 10 ml PRN Q6HRS PRN PO COUGH Last administered on 02/10/19 21:34; Start 02/09/19 at 14:30 Diphenhydramine HCl (Benadryl) 25 mg PRN QHS PRN PO INSOMNIA Last administered on 02/09/19 20:59; Start 02/09/19 at 14:30 Cyclobenzaprine HCl (Flexeril) 10 mg TID PRN PRN PO MUSCLE SPASMS Last administered on 02/11/19 09:22; Start 02/09/19 at 22:45 Throat Lozenges (Chloraseptic) 1 spray PRN Q2HR PRN PO SORE THROAT Last administered on 02/10/19 12:48; Start 02/10/19 at 10:15 Throat Lozenges (Cepacol Sore Throat Lozenge) 1 marj PRN Q2HRS PRN PO SORE THROAT Last administered on 02/10/19 20:37; Start 02/10/19 at 10:15 Lactobacillus Rhamnosus (Culturelle) 1 cap BID PO Last administered on 02/11/19 08:55; Start 02/10/19 at 21:00 Multivitamins (Thera M Plus) 1 tab DAILY PO Last administered on 02/11/19 08:55; Start 02/10/19 at 13:30 Ascorbic Acid (Vitamin C) 500 mg DAILY PO Last administered on 02/11/19 08:55; Start 02/10/19 at 13:30 Calcium/Vitamin D (Oscal D 500mg/ 200uts) 1 tab DAILY PO Last administered on 08:56; Start 02/10/19 at 13:30 Zolpidem Tartrate (Ambien) 5 mg PRN QHS PRN PO INSOMNIA, MAY REPEAT IN 1HR Last administered on 02/10/19 21:28; Start 02/10/19 at 21:00 Vitals/I & O Vital Sign - Last 24 Hours 02/10/19 02/10/19 02/10/19 02/10/19 12:00 15:00 15:43 19:00 Temp 99.0 99.0 98.0 99.0 99.0 98.0 Pulse 53 51 53 Resp 18 18 18 B/P (MAP) 116/53 (74) 132/69 (90) 131/40 (70) Pulse Ox 97 97 97 O2 Delivery Room Air Room Air Room Air 02/10/19 02/10/19 02/10/19 02/10/19 19:30 22:23 23:00 23:23 Temp 97.9 97.9 Pulse 64 Resp 20 18 20 B/P (MAP) 129/62 (84) Pulse Ox 97 O2 Delivery Room Air Room Air Room Air Room Air 02/11/19 02/11/19 02/11/19 07:00 08:00 09:22 Temp 97.7 97.7 Pulse 73 Resp 18 B/P (MAP) 142/71 (94) Pulse Ox 98 O2 Delivery Room Air Room Air Room Air Intake and Output 02/10/19 02/10/19 02/11/19 14:59 22:59 06:59 Intake Total 600 ml 1400 ml 0 ml Balance 600 ml 1400 ml 0 ml KADY HOFFMAN MD Feb 11, 2019 10:46
[2019-02-11 11:00] VITALS: BP 138/68
[2019-02-11] MEDS: cefTRIAXone IV Push 1 GM VIAL. IVP SCH (13:01)
[2019-02-11 15:00] VITALS: BP 126/54
--- NOTE | 2019-02-11 15:42 | PDOC ---
PULMONARY PROGRESS NOTES Subjective Patient admitted with acute RUL pneumonia, on azithromycin and ceftriaxone. feeling better, still with cough and some soa Vitals Vital Signs Date Time Temp Pulse Resp B/P (MAP) Pulse Ox O2 Delivery O2 Flow Rate FiO2 02/11/19 15:00 98.0 74 18 126/54 (78) 98 Room Air 98.0 General: Alert, Oriented X4, No acute distress Lungs: Crackles, Other (tubular breath sounds posterior right upper lung field) Cardiovascular: S1, S2 Labs Laboratory Tests Test 02/10/19 05:05 White Blood Count 10.9 x10^3/uL (4.0-11.0) Red Blood Count 4.46 x10^6/uL (4.30-5.70) Hemoglobin 13.6 g/dL (13.0-17.5) Hematocrit 40.0 % (39.0-53.0) Mean Corpuscular Volume 90 fL (79-100) Mean Corpuscular Hemoglobin 30 pg (25-35) Mean Corpuscular Hemoglobin Concent 34 g/dL (31-37) Red Cell Distribution Width 13.2 % (11.5-14.5) Platelet Count 172 x10^3/uL (140-400) Neutrophils (%) (Auto) 74 % (31-73) Lymphocytes (%) (Auto) 13 % (24-48) Monocytes (%) (Auto) 9 % (0-9) Eosinophils (%) (Auto) 4 % (0-3) Basophils (%) (Auto) 0 % (0-3) Neutrophils # (Auto) 8.1 x10^3uL (1.8-7.7) Lymphocytes # (Auto) 1.4 x10^3/uL (1.0-4.8) Monocytes # (Auto) 1.0 x10^3/uL (0.0-1.1) Eosinophils # (Auto) 0.4 x10^3/uL (0.0-0.7) Basophils # (Auto) 0.0 x10^3/uL (0.0-0.2) Sodium Level 143 mmol/L (136-145) Potassium Level 4.2 mmol/L (3.5-5.1) Chloride Level 110 mmol/L (98-107) Carbon Dioxide Level 24 mmol/L (21-32) Anion Gap 9 (6-14) Blood Urea Nitrogen 7 mg/dL (8-26) Creatinine 0.7 mg/dL (0.7-1.3) Estimated GFR (Cockcroft-Gault) 137.4 Glucose Level 113 mg/dL (70-99) Calcium Level 8.4 mg/dL (8.5-10.1) Impression . Acute pneumonia, responding to present antibiotic regimen Plan . continue antibiotics LISA PINO MD Feb 11, 2019 15:42
[2019-02-11 19:00] VITALS: BP 130/54
[2019-02-11] MEDS ORDERED: SIMETHICONE 80 MG TAB.CHEW PO PRN (20:00)
[2019-02-11] MEDS: ALPRAZolam 0.5 MG TABLET PO SCH (22:03)
[2019-02-11] MEDS: ZOLPIDEM 5 MG TABLET. PO PRN ×2 (22:55→23:48)
[2019-02-11 22:56] VITALS: BP 137/63
[2019-02-11] MEDS: guaiFENesin DM 200MG/20MG 10 ML SYRUP PO PRN (23:48)
[2019-02-12 02:58] VITALS: BP 127/65
[2019-02-12] MEDS: CYCLOBENZAPRINE 10 MG TABLET. PO PRN ×3 (05:01→22:07)
[2019-02-12] MEDS: ACETAMINOPHEN/CODEINE 300/30MG TABLET. PO PRN ×4 (05:02→23:56)
[2019-02-12 05:19] LABS: BASO % 1 % (0-3); EOS # 0.4 x10^3/uL (0.0-0.7); EOS % 6 % (0-3); HEMATOCRIT 40.5 % (39.0-53.0); LYMPH # 2.3 x10^3/uL (1.0-4.8); LYMPH % 32 % (24-48); MEAN CORPUSCULAR HEMOGLOBIN 30 pg (25-35); MEAN CORPUSCULAR HGB CONC 35 g/dL (31-37); MEAN CORPUSCULAR VOLUME 88 fL (79-100); MONO # 0.6 x10^3/uL (0.0-1.1); MONO % 8 % (0-9); NEUT # 3.7 x10^3uL (1.8-7.7); NEUT % 53 % (31-73); PLATELET COUNT 232 x10^3/uL (140-400); RED CELL DISTRIBUTION WIDTH 13.2 % (11.5-14.5)
[2019-02-12 05:40] LABS: ALBUMIN 3.4 g/dL (3.4-5.0); CALCIUM 9.2 mg/dL (8.5-10.1); CREATININE 0.7 mg/dL (0.7-1.3); GFR 137.4; POTASSIUM 4.1 mmol/L (3.5-5.1); TOTAL BILIRUBIN 0.2 mg/dL (0.2-1.0); TOTAL PROTEIN 6.8 g/dL (6.4-8.2)
[2019-02-12 11:00] VITALS: BP 136/87
[2019-02-12] MEDS: LACTOBACILLUS RHAMNOSUS GG 1 CAPSULE. PO SCH ×2 (11:01→21:52)
[2019-02-12] MEDS: CALCIUM CARB/VIT D3 500/200 TABLET. PO SCH (11:01)
[2019-02-12] MEDS: MULTIVITAMIN with MINERAL TABLET. PO SCH (11:01)
[2019-02-12] MEDS: ASCORBIC ACID 500 MG TABLET PO SCH (11:01)
[2019-02-12] MEDS: AZITHROMYCIN 250 MG TABLET. PO SCH (11:01)
--- NOTE | 2019-02-12 11:43 | PDOC ---
PROGRESS NOTES Chief Complaint Chief Complaint CAP, right upper lobe- SIRS no organ dysfunction Elevated BP -no diagnosis of hypertension Febrile episodes History of Present Illness History of Present Illness Patient seen and examined Discussed with RN His mom is present still has a harsh cough Chest, PA and Lateral: Technique: PA and lateral views of the chest were obtained. History: Fever. Comparison: None. Findings: The cardiomediastinal silhouette grossly appears unremarkable. There are faint patchy airspace opacities identified in the right upper lobe of the lung likely pneumonia or atelectasis. IMPRESSION: Faint patchy airspace opacities identified in the lung likely pneumonia or atelectasis. Follow-up to resolution. Electronically signed by: Luis Crane MD (02/09/2019 12:43 PM) [facility] 27 min pt exam, chart review, > 50% of time spent with exam, chart review, pt care coordination, disease education with parents Vitals Vitals Vital Signs Date Time Temp Pulse Resp B/P (MAP) Pulse Ox O2 Delivery O2 Flow Rate FiO2 02/12/19 11:04 96 Room Air 02/12/19 05:02 16 02/12/19 02:58 97.9 87 127/65 (85) 97.9 Physical Exam General: Alert, Oriented X3, Cooperative, No acute distress Heart: Regular rate, Normal S1, Normal S2 Lungs: Crackles, Other (tubular breath sounds posterior right upper lung field) Abdomen: Normal bowel sounds, Soft Extremities: No clubbing, No cyanosis, No edema, Normal pulses, No tenderness/swelling Skin: No rashes, No breakdown, No significant lesion Labs LABS Laboratory Tests Test 02/12/19 05:00 White Blood Count 7.0 x10^3/uL (4.0-11.0) Red Blood Count 4.60 x10^6/uL (4.30-5.70) Hemoglobin 14.0 g/dL (13.0-17.5) Hematocrit 40.5 % (39.0-53.0) Mean Corpuscular Volume 88 fL (79-100) Mean Corpuscular Hemoglobin 30 pg (25-35) Mean Corpuscular Hemoglobin Concent 35 g/dL (31-37) Red Cell Distribution Width 13.2 % (11.5-14.5) Platelet Count 232 x10^3/uL (140-400) Neutrophils (%) (Auto) 53 % (31-73) Lymphocytes (%) (Auto) 32 % (24-48) Monocytes (%) (Auto) 8 % (0-9) Eosinophils (%) (Auto) 6 % (0-3) Basophils (%) (Auto) 1 % (0-3) Neutrophils # (Auto) 3.7 x10^3uL (1.8-7.7) Lymphocytes # (Auto) 2.3 x10^3/uL (1.0-4.8) Monocytes # (Auto) 0.6 x10^3/uL (0.0-1.1) Eosinophils # (Auto) 0.4 x10^3/uL (0.0-0.7) Basophils # (Auto) 0.0 x10^3/uL (0.0-0.2) Sodium Level 143 mmol/L (136-145) Potassium Level 4.1 mmol/L (3.5-5.1) Chloride Level 106 mmol/L (98-107) Carbon Dioxide Level 28 mmol/L (21-32) Anion Gap 9 (6-14) Blood Urea Nitrogen 15 mg/dL (8-26) Creatinine 0.7 mg/dL (0.7-1.3) Estimated GFR (Cockcroft-Gault) 137.4 BUN/Creatinine Ratio 21 (6-20) Glucose Level 122 mg/dL (70-99) Calcium Level 9.2 mg/dL (8.5-10.1) Total Bilirubin 0.2 mg/dL (0.2-1.0) Aspartate Amino Transf (AST/SGOT) 23 U/L (15-37) Alanine Aminotransferase (ALT/SGPT) 52 U/L (16-63) Alkaline Phosphatase 73 U/L (46-116) Total Protein 6.8 g/dL (6.4-8.2) Albumin 3.4 g/dL (3.4-5.0) Albumin/Globulin Ratio 1.0 (1.0-1.7) Assessment and Plan Assessmemt and Plan Problems Medical Problems: (1) Fever Status: Acute (2) Myalgia Status: Acute (3) Right upper lobe pneumonia Status: Acute (4) SIRS (systemic inflammatory response syndrome) Status: Acute Comment Review of Relevant I have reviewed the following items brittany (where applicable) has been applied. Labs Laboratory Tests Test 02/12/19 05:00 White Blood Count 7.0 x10^3/uL (4.0-11.0) Red Blood Count 4.60 x10^6/uL (4.30-5.70) Hemoglobin 14.0 g/dL (13.0-17.5) Hematocrit 40.5 % (39.0-53.0) Mean Corpuscular Volume 88 fL (79-100) Mean Corpuscular Hemoglobin 30 pg (25-35) Mean Corpuscular Hemoglobin Concent 35 g/dL (31-37) Red Cell Distribution Width 13.2 % (11.5-14.5) Platelet Count 232 x10^3/uL (140-400) Neutrophils (%) (Auto) 53 % (31-73) Lymphocytes (%) (Auto) 32 % (24-48) Monocytes (%) (Auto) 8 % (0-9) Eosinophils (%) (Auto) 6 % (0-3) Basophils (%) (Auto) 1 % (0-3) Neutrophils # (Auto) 3.7 x10^3uL (1.8-7.7) Lymphocytes # (Auto) 2.3 x10^3/uL (1.0-4.8) Monocytes # (Auto) 0.6 x10^3/uL (0.0-1.1) Eosinophils # (Auto) 0.4 x10^3/uL (0.0-0.7) Basophils # (Auto) 0.0 x10^3/uL (0.0-0.2) Sodium Level 143 mmol/L (136-145) Potassium Level 4.1 mmol/L (3.5-5.1) Chloride Level 106 mmol/L (98-107) Carbon Dioxide Level 28 mmol/L (21-32) Anion Gap 9 (6-14) Blood Urea Nitrogen 15 mg/dL (8-26) Creatinine 0.7 mg/dL (0.7-1.3) Estimated GFR (Cockcroft-Gault) 137.4 BUN/Creatinine Ratio 21 (6-20) Glucose Level 122 mg/dL (70-99) Calcium Level 9.2 mg/dL (8.5-10.1) Total Bilirubin 0.2 mg/dL (0.2-1.0) Aspartate Amino Transf (AST/SGOT) 23 U/L (15-37) Alanine Aminotransferase (ALT/SGPT) 52 U/L (16-63) Alkaline Phosphatase 73 U/L (46-116) Total Protein 6.8 g/dL (6.4-8.2) Albumin 3.4 g/dL (3.4-5.0) Albumin/Globulin Ratio 1.0 (1.0-1.7) Laboratory Tests Test 02/12/19 05:00 White Blood Count 7.0 x10^3/uL (4.0-11.0) Red Blood Count 4.60 x10^6/uL (4.30-5.70) Hemoglobin 14.0 g/dL (13.0-17.5) Hematocrit 40.5 % (39.0-53.0) Mean Corpuscular Volume 88 fL (79-100) Mean Corpuscular Hemoglobin 30 pg (25-35) Mean Corpuscular Hemoglobin Concent 35 g/dL (31-37) Red Cell Distribution Width 13.2 % (11.5-14.5) Platelet Count 232 x10^3/uL (140-400) Neutrophils (%) (Auto) 53 % (31-73) Lymphocytes (%) (Auto) 32 % (24-48) Monocytes (%) (Auto) 8 % (0-9) Eosinophils (%) (Auto) 6 % (0-3) Basophils (%) (Auto) 1 % (0-3) Neutrophils # (Auto) 3.7 x10^3uL (1.8-7.7) Lymphocytes # (Auto) 2.3 x10^3/uL (1.0-4.8) Monocytes # (Auto) 0.6 x10^3/uL (0.0-1.1) Eosinophils # (Auto) 0.4 x10^3/uL (0.0-0.7) Basophils # (Auto) 0.0 x10^3/uL (0.0-0.2) Sodium Level 143 mmol/L (136-145) Potassium Level 4.1 mmol/L (3.5-5.1) Chloride Level 106 mmol/L (98-107) Carbon Dioxide Level 28 mmol/L (21-32) Anion Gap 9 (6-14) Blood Urea Nitrogen 15 mg/dL (8-26) Creatinine 0.7 mg/dL (0.7-1.3) Estimated GFR (Cockcroft-Gault) 137.4 BUN/Creatinine Ratio 21 (6-20) Glucose Level 122 mg/dL (70-99) Calcium Level 9.2 mg/dL (8.5-10.1) Total Bilirubin 0.2 mg/dL (0.2-1.0) Aspartate Amino Transf (AST/SGOT) 23 U/L (15-37) Alanine Aminotransferase (ALT/SGPT) 52 U/L (16-63) Alkaline Phosphatase 73 U/L (46-116) Total Protein 6.8 g/dL (6.4-8.2) Albumin 3.4 g/dL (3.4-5.0) Albumin/Globulin Ratio 1.0 (1.0-1.7) Microbiology 02/09/19 Blood Culture - Preliminary, Resulted NO GROWTH AFTER 2 DAYS 02/09/19 Throat Culture - Final, Complete 02/09/19 - Final, Complete Medications Current Medications Acetaminophen (Tylenol) 1,000 mg 1X ONCE PO Last administered on 02/09/19at 12:42; Start 02/09/19 at 12:45; Stop 02/09/19 at 12:46; Status DC Sodium Chloride 1,000 ml @ 1,000 mls/hr Q1H IV Last administered on 02/09/19at 12:41; Start 02/09/19 at 11:53; Stop 02/09/19 at 12:52; Status DC Ketorolac Tromethamine (Toradol 30mg Vial) 30 mg 1X ONCE IV Last administered on 02/09/19at 12:43; Start 02/09/19 at 12:45; Stop 02/09/19 at 12:46; Status DC Sodium Chloride 1,000 ml @ 1,000 mls/hr 1X ONCE IV Last administered on 02/09/19at 13:00; Start 02/09/19 at 13:00; Stop 02/09/19 at 13:59; Status DC Ceftriaxone Sodium (Rocephin) 1 gm 1X ONCE IVP Last administered on 02/09/19at 13:25; Start 02/09/19 at 13:00; Stop 02/09/19 at 13:04; Status DC Azithromycin 250 ml @ 250 mls/hr 1X ONCE IV Last administered on 02/09/19 13:39; Start 02/09/19 at 13:00; Stop 02/09/19 at 13:59; Status DC Ibuprofen (Motrin) 800 mg 1X ONCE PO Last administered on 02/09/19 14:01; Start 02/09/19 at 13:15; Stop 02/09/19 at 13:16; Status DC Sodium Chloride 1,000 ml @ 150 mls/hr Q6H40M IV Last administered on 02/10/19 12:48; Start 02/09/19 at 14:02; Stop 02/10/19 at 14:01; Status DC Ibuprofen (Motrin) 600 mg PRN Q6HRS PRN PO INFLAMMATION Last administered on 02/10/19 05:57; Start 02/09/19 at 14:30 Acetaminophen (Tylenol) 500 mg PRN Q6HRS PRN PO MILD PAIN / TEMP Last administered on 02/11/19 18:30; Start 02/09/19 at 14:30 Acetaminophen/ Codeine Phosphate (Tylenol #3) 1 tab PRN Q6HRS PRN PO MODERATE - SEVERE PAIN Last administered on 02/12/19 11:04; Start 02/09/19 at 14:30 Ondansetron HCl (Zofran) 4 mg PRN Q6HRS PRN IV NAUSEA/VOMITING; Start 02/09/19 at 14:30 Ondansetron HCl (Zofran Odt) 4 mg PRN Q6HRS PRN PO NAUSEA/VOMITING; Start 02/09/19 at 14:30 Ceftriaxone Sodium (Rocephin) 1 gm Q24H IVP Last administered on 02/11/19 13:01; Start 02/10/19 at 13:00 Azithromycin (Zithromax) 250 mg DAILY PO Last administered on 02/12/19 11:01; Start 02/10/19 at 09:00 Albuterol Sulfate (Ventolin Neb Soln) 2.5 mg PRN Q4HRS PRN NEB SHORTNESS OF BREATH Last administered on 02/09/19 21:50; Start 02/09/19 at 14:30 Guaifenesin (Robitussin Dm) 10 ml PRN Q6HRS PRN PO COUGH Last administered on 02/11/19 23:48; Start 02/09/19 at 14:30 Diphenhydramine HCl (Benadryl) 25 mg PRN QHS PRN PO INSOMNIA, 1ST CHOICE Last administered on 02/09/19at 20:59; Start 02/09/19 at 14:30 Cyclobenzaprine HCl (Flexeril) 10 mg TID PRN PRN PO MUSCLE SPASMS Last administered on 02/12/19 05:01; Start 02/09/19 at 22:45 Throat Lozenges (Chloraseptic) 1 spray PRN Q2HR PRN PO SORE THROAT, 2ND CHOICE Last administered on 02/10/19at 12:48; Start 02/10/19 at 10:15 Throat Lozenges (Cepacol Sore Throat Lozenge) 1 marj PRN Q2HRS PRN PO SORE THROAT, 1ST CHOICE Last administered on 02/10/19 20:37; Start 02/10/19 at 10:15 Lactobacillus Rhamnosus (Culturelle) 1 cap BID PO Last administered on 02/12/19 11:01; Start 02/10/19 at 21:00 Multivitamins (Thera M Plus) 1 tab DAILY PO Last administered on 02/12/19 11:01; Start 02/10/19 at 13:30 Ascorbic Acid (Vitamin C) 500 mg DAILY PO Last administered on 02/12/19 11:01; Start 02/10/19 at 13:30 Calcium/Vitamin D (Oscal D 500mg/ 200uts) 1 tab DAILY PO Last administered on 02/12/19 11:01; Start 02/10/19 at 13:30 Zolpidem Tartrate (Ambien) 5 mg PRN QHS PRN PO INSOMNIA, M/R IN 1H, 2ND CHOIC Last administered on 02/11/19at 23:48; Start 02/10/19 at 21:00 Alprazolam (Xanax) 0.5 mg QHS PO Last administered on 02/11/19at 22:03; Start 02/11/19 at 21:00 Simethicone (Gas-X) 80 mg PRN Q3HRS PRN PO GAS / BLOATING; Start 02/11/19 at 20:00 Vitals/I & O Vital Sign - Last 24 Hours 6/02/11/19 02/11/19 02/11/19 15:00 16:00 19:00 20:00 Temp 98.0 98.0 98.0 98.0 Pulse 74 53 Resp 18 18 B/P (MAP) 126/54 (78) 130/54 (79) Pulse Ox 98 98 O2 Delivery Room Air Room Air Room Air Room Air 02/11/19 02/11/19 02/12/19 02/12/19 22:04 22:56 02:58 05:02 Temp 97.5 97.9 97.5 97.9 Pulse 45 87 Resp 14 18 18 16 B/P (MAP) 137/63 (87) 127/65 (85) Pulse Ox 98 98 96 96 O2 Delivery Room Air Room Air Room Air Room Air 02/12/19 02/12/19 02/12/19 06:03 08:30 11:04 Pulse Ox 96 96 O2 Delivery Room Air Room Air Room Air Intake and Output0 02/11/19 02/11/19 02/12/19 15:00 23:00 07:00 Intake Total 200 ml 150 ml Balance 200 ml 150 ml KADY HOFFMAN MD Feb 12, 2019 11:43
[2019-02-12] MEDS: cefTRIAXone IV Push 1 GM VIAL. IVP SCH (13:08)
--- NOTE | 2019-02-12 14:33 | PDOC ---
PULMONARY PROGRESS NOTES Subjective Patient admitted with acute RUL pneumonia, on azithromycin and ceftriaxone. Continues to feel better. Still has nonproductive cough Vitals Vital Signs Date Time Temp Pulse Resp B/P (MAP) Pulse Ox O2 Delivery O2 Flow Rate FiO2 02/12/19 12:08 96 Room Air 02/12/19 11:00 97.5 57 16 136/87 (103) 97.5 General: Alert, Oriented X4, No acute distress Lungs: Crackles, Other (tubular breath sounds posterior right upper lung field) Cardiovascular: S1, S2 Labs Laboratory Tests Test 02/12/19 05:00 White Blood Count 7.0 x10^3/uL (4.0-11.0) Red Blood Count 4.60 x10^6/uL (4.30-5.70) Hemoglobin 14.0 g/dL (13.0-17.5) Hematocrit 40.5 % (39.0-53.0) Mean Corpuscular Volume 88 fL (79-100) Mean Corpuscular Hemoglobin 30 pg (25-35) Mean Corpuscular Hemoglobin Concent 35 g/dL (31-37) Red Cell Distribution Width 13.2 % (11.5-14.5) Platelet Count 232 x10^3/uL (140-400) Neutrophils (%) (Auto) 53 % (31-73) Lymphocytes (%) (Auto) 32 % (24-48) Monocytes (%) (Auto) 8 % (0-9) Eosinophils (%) (Auto) 6 % (0-3) Basophils (%) (Auto) 1 % (0-3) Neutrophils # (Auto) 3.7 x10^3uL (1.8-7.7) Lymphocytes # (Auto) 2.3 x10^3/uL (1.0-4.8) Monocytes # (Auto) 0.6 x10^3/uL (0.0-1.1) Eosinophils # (Auto) 0.4 x10^3/uL (0.0-0.7) Basophils # (Auto) 0.0 x10^3/uL (0.0-0.2) Sodium Level 143 mmol/L (136-145) Potassium Level 4.1 mmol/L (3.5-5.1) Chloride Level 106 mmol/L (98-107) Carbon Dioxide Level 28 mmol/L (21-32) Anion Gap 9 (6-14) Blood Urea Nitrogen 15 mg/dL (8-26) Creatinine 0.7 mg/dL (0.7-1.3) Estimated GFR (Cockcroft-Gault) 137.4 BUN/Creatinine Ratio 21 (6-20) Glucose Level 122 mg/dL (70-99) Calcium Level 9.2 mg/dL (8.5-10.1) Total Bilirubin 0.2 mg/dL (0.2-1.0) Aspartate Amino Transf (AST/SGOT) 23 U/L (15-37) Alanine Aminotransferase (ALT/SGPT) 52 U/L (16-63) Alkaline Phosphatase 73 U/L (46-116) Total Protein 6.8 g/dL (6.4-8.2) Albumin 3.4 g/dL (3.4-5.0) Albumin/Globulin Ratio 1.0 (1.0-1.7) Laboratory Tests Test 02/12/19 05:00 White Blood Count 7.0 x10^3/uL (4.0-11.0) Red Blood Count 4.60 x10^6/uL (4.30-5.70) Hemoglobin 14.0 g/dL (13.0-17.5) Hematocrit 40.5 % (39.0-53.0) Mean Corpuscular Volume 88 fL (79-100) Mean Corpuscular Hemoglobin 30 pg (25-35) Mean Corpuscular Hemoglobin Concent 35 g/dL (31-37) Red Cell Distribution Width 13.2 % (11.5-14.5) Platelet Count 232 x10^3/uL (140-400) Neutrophils (%) (Auto) 53 % (31-73) Lymphocytes (%) (Auto) 32 % (24-48) Monocytes (%) (Auto) 8 % (0-9) Eosinophils (%) (Auto) 6 % (0-3) Basophils (%) (Auto) 1 % (0-3) Neutrophils # (Auto) 3.7 x10^3uL (1.8-7.7) Lymphocytes # (Auto) 2.3 x10^3/uL (1.0-4.8) Monocytes # (Auto) 0.6 x10^3/uL (0.0-1.1) Eosinophils # (Auto) 0.4 x10^3/uL (0.0-0.7) Basophils # (Auto) 0.0 x10^3/uL (0.0-0.2) Sodium Level 143 mmol/L (136-145) Potassium Level 4.1 mmol/L (3.5-5.1) Chloride Level 106 mmol/L (98-107) Carbon Dioxide Level 28 mmol/L (21-32) Anion Gap 9 (6-14) Blood Urea Nitrogen 15 mg/dL (8-26) Creatinine 0.7 mg/dL (0.7-1.3) Estimated GFR (Cockcroft-Gault) 137.4 BUN/Creatinine Ratio 21 (6-20) Glucose Level 122 mg/dL (70-99) Calcium Level 9.2 mg/dL (8.5-10.1) Total Bilirubin 0.2 mg/dL (0.2-1.0) Aspartate Amino Transf (AST/SGOT) 23 U/L (15-37) Alanine Aminotransferase (ALT/SGPT) 52 U/L (16-63) Alkaline Phosphatase 73 U/L (46-116) Total Protein 6.8 g/dL (6.4-8.2) Albumin 3.4 g/dL (3.4-5.0) Albumin/Globulin Ratio 1.0 (1.0-1.7) Impression . Acute pneumonia, responding to present antibiotic regimen Plan . continue antibiotics Needs follow up cxr in 4-6 weeks routinely. I noted to patient and parents that cough may persist for weeks and does not by itself indicate problems LISA PINO MD Feb 12, 2019 14:33
[2019-02-12 15:00] VITALS: BP 125/66
--- NOTE | 2019-02-12 15:11 | RAD ---
PROCEDURE: CHEST PA LATERAL CLINICAL INDICATION: 02/09/2019 COMPARISON: None FINDINGS: Interval improvement in previously seen right upper lobe patchy opacity. No pneumothorax identified. Cardiac and mediastinal contours unremarkable. No acute osseous abnormalities identified. IMPRESSION: Interval improvement in right upper lobe pneumonia. Electronically signed by: Terrance Pino DO (02/12/2019 3:08 PM) [facility]
[2019-02-12 19:00] VITALS: BP 141/83
[2019-02-12] MEDS: ALPRAZolam 0.5 MG TABLET PO SCH (21:52)
[2019-02-12] MEDS: IBUPROFEN 200 MG TABLET. PO PRN (22:07)
[2019-02-12] MEDS ORDERED: ALPRAZolam 1 MG TABLET PO SCH (22:45)
[2019-02-12 22:49] VITALS: BP 130/70
[2019-02-12] MEDS: ZOLPIDEM 5 MG TABLET. PO PRN (23:55)
[2019-02-13 03:00] VITALS: BP 112/63
--- NOTE | 2019-02-13 09:12 | PDOC ---
PULMONARY PROGRESS NOTES Subjective Patient admitted with acute RUL pneumonia, on azithromycin and ceftriaxone. Continues to feel better. Still has nonproductive cough Vitals Vital Signs Date Time Temp Pulse Resp B/P (MAP) Pulse Ox O2 Delivery O2 Flow Rate FiO2 02/13/19 03:00 55 18 112/63 (79) 97 Room Air 02/12/19 22:49 98.0 98.0 General: Alert, Oriented X4, No acute distress Lungs: Crackles, Other (tubular breath sounds posterior right upper lung field) Cardiovascular: S1, S2 Labs Laboratory Tests Test 02/12/19 05:00 White Blood Count 7.0 x10^3/uL (4.0-11.0) Red Blood Count 4.60 x10^6/uL (4.30-5.70) Hemoglobin 14.0 g/dL (13.0-17.5) Hematocrit 40.5 % (39.0-53.0) Mean Corpuscular Volume 88 fL (79-100) Mean Corpuscular Hemoglobin 30 pg (25-35) Mean Corpuscular Hemoglobin Concent 35 g/dL (31-37) Red Cell Distribution Width 13.2 % (11.5-14.5) Platelet Count 232 x10^3/uL (140-400) Neutrophils (%) (Auto) 53 % (31-73) Lymphocytes (%) (Auto) 32 % (24-48) Monocytes (%) (Auto) 8 % (0-9) Eosinophils (%) (Auto) 6 % (0-3) Basophils (%) (Auto) 1 % (0-3) Neutrophils # (Auto) 3.7 x10^3uL (1.8-7.7) Lymphocytes # (Auto) 2.3 x10^3/uL (1.0-4.8) Monocytes # (Auto) 0.6 x10^3/uL (0.0-1.1) Eosinophils # (Auto) 0.4 x10^3/uL (0.0-0.7) Basophils # (Auto) 0.0 x10^3/uL (0.0-0.2) Sodium Level 143 mmol/L (136-145) Potassium Level 4.1 mmol/L (3.5-5.1) Chloride Level 106 mmol/L (98-107) Carbon Dioxide Level 28 mmol/L (21-32) Anion Gap 9 (6-14) Blood Urea Nitrogen 15 mg/dL (8-26) Creatinine 0.7 mg/dL (0.7-1.3) Estimated GFR (Cockcroft-Gault) 137.4 BUN/Creatinine Ratio 21 (6-20) Glucose Level 122 mg/dL (70-99) Calcium Level 9.2 mg/dL (8.5-10.1) Total Bilirubin 0.2 mg/dL (0.2-1.0) Aspartate Amino Transf (AST/SGOT) 23 U/L (15-37) Alanine Aminotransferase (ALT/SGPT) 52 U/L (16-63) Alkaline Phosphatase 73 U/L (46-116) Total Protein 6.8 g/dL (6.4-8.2) Albumin 3.4 g/dL (3.4-5.0) Albumin/Globulin Ratio 1.0 (1.0-1.7) Impression . Acute pneumonia, responding to present antibiotic regimen Plan . continue antibiotics Needs follow up cxr in 4-6 weeks routinely. I noted to patient and parents that cough may persist for weeks and does not by itself indicate problems TIFFANIE JONES MD Feb 13, 2019 09:12
--- NOTE | 2019-02-13 10:33 | NUR ---
Per shift change report, do not enter pt's room until notified by the family so the pt can sleep. Pt's mother came to nurses station at approx 1030 asking for the pt's IV to be covered for a shower.
[2019-02-13] MEDS: LACTOBACILLUS RHAMNOSUS GG 1 CAPSULE. PO SCH (10:42)
[2019-02-13] MEDS: MULTIVITAMIN with MINERAL TABLET. PO SCH (10:43)
[2019-02-13] MEDS: ASCORBIC ACID 500 MG TABLET PO SCH (10:43)
[2019-02-13] MEDS: CALCIUM CARB/VIT D3 500/200 TABLET. PO SCH (10:43)
[2019-02-13] MEDS: AZITHROMYCIN 250 MG TABLET. PO SCH (10:43)
[2019-02-13 11:00] VITALS: BP 125/77
[2019-02-13] MEDS ORDERED: ALPR1TAB6 PO (11:52)
[2019-02-13] MEDS ORDERED: AZIT250T6 PO (11:52)
[2019-02-13] MEDS ORDERED: GUAI5SYR PO (11:53)
[2019-02-13] MEDS: cefTRIAXone IV Push 1 GM VIAL. IVP SCH (13:19)
[2019-02-13] MEDS: IBUPROFEN 200 MG TABLET. PO PRN (13:39)
--- NOTE | 2019-02-13 15:19 | NUR ---
Discharge Note: OLIVER JOAQUIN FERNWOOD Discharge instructions and discharge home medications reviewed with Patient and a copy given. All questions have been answered and understanding verbalized. The following instructions and handouts were given: patient visit, medication education, disease process education Discontinued lines and drains: peripheral IV, tip intact. Patient discharged to home with self care via private vehicle. Patient left unit in stable condition with all personal belongings.
--- NOTE | 2019-02-13 15:20 | PDOC3 ---
Discharge Summary Visit Information Date of Admission: Feb 09, 2019 Date of Discharge: Feb 13, 2019 Final Diagnosis Problems Medical Problems: (1) Fever Status: Acute (2) Myalgia Status: Acute (3) Right upper lobe pneumonia Status: Acute (4) SIRS (systemic inflammatory response syndrome) Status: Acute Brief Hospital Course Allergies Allergies Coded Allergies Type Severity Reaction Last Updated Verified No Known Drug Allergies 02/09/19 No Vital Signs Vital Signs Date Time Temp Pulse Resp B/P (MAP) Pulse Ox O2 Delivery O2 Flow Rate FiO2 02/13/19 11:00 97.6 82 14 125/77 (93) 96 Room Air 97.6 Lab Results Laboratory Tests Test 02/12/19 05:00 White Blood Count 7.0 x10^3/uL (4.0-11.0) Red Blood Count 4.60 x10^6/uL (4.30-5.70) Hemoglobin 14.0 g/dL (13.0-17.5) Hematocrit 40.5 % (39.0-53.0) Mean Corpuscular Volume 88 fL (79-100) Mean Corpuscular Hemoglobin 30 pg (25-35) Mean Corpuscular Hemoglobin Concent 35 g/dL (31-37) Red Cell Distribution Width 13.2 % (11.5-14.5) Platelet Count 232 x10^3/uL (140-400) Neutrophils (%) (Auto) 53 % (31-73) Lymphocytes (%) (Auto) 32 % (24-48) Monocytes (%) (Auto) 8 % (0-9) Eosinophils (%) (Auto) 6 % (0-3) Basophils (%) (Auto) 1 % (0-3) Neutrophils # (Auto) 3.7 x10^3uL (1.8-7.7) Lymphocytes # (Auto) 2.3 x10^3/uL (1.0-4.8) Monocytes # (Auto) 0.6 x10^3/uL (0.0-1.1) Eosinophils # (Auto) 0.4 x10^3/uL (0.0-0.7) Basophils # (Auto) 0.0 x10^3/uL (0.0-0.2) Sodium Level 143 mmol/L (136-145) Potassium Level 4.1 mmol/L (3.5-5.1) Chloride Level 106 mmol/L (98-107) Carbon Dioxide Level 28 mmol/L (21-32) Anion Gap 9 (6-14) Blood Urea Nitrogen 15 mg/dL (8-26) Creatinine 0.7 mg/dL (0.7-1.3) Estimated GFR (Cockcroft-Gault) 137.4 BUN/Creatinine Ratio 21 (6-20) Glucose Level 122 mg/dL (70-99) Calcium Level 9.2 mg/dL (8.5-10.1) Total Bilirubin 0.2 mg/dL (0.2-1.0) Aspartate Amino Transf (AST/SGOT) 23 U/L (15-37) Alanine Aminotransferase (ALT/SGPT) 52 U/L (16-63) Alkaline Phosphatase 73 U/L (46-116) Total Protein 6.8 g/dL (6.4-8.2) Albumin 3.4 g/dL (3.4-5.0) Albumin/Globulin Ratio 1.0 (1.0-1.7) Brief Hospital Course 23-year-old male, otherwise healthy, just got back from [place]. Since then temperature 103.2, headaches, myalgias, arthralgias and poor by mouth. Hence mother brought him to the ER. WBC 13, BP high side, temperature febrile, x-ray shows maybe some haziness right upper lobe. Flu and rapid strep test negative. Admitted for treatment of PNA with rocephin and azithro. improved after 4 days. labs stable. cultures negative. will plan to dc on 4 days of azithro. will need repeat chest xray in 4-6 weeks. patient asking for muscle relaxer. has hx of anxiety not on meds. provided 5 days of xanax prn only. will need follow up with psych at discharge and arrangement for PCP follow up with repeat chest xray in 4-6 weeks. patient discharged in stable condition. Discharge Information Condition at Discharge: Stable Follow Up: Weeks (4- 6 weeks with PCP for repeat chest xray) Disposition/Orders: D/C to Home Scheduled Alprazolam (Alprazolam) 1 Mg Tablet, 1 MG PO QHS for anxiety for 5 Days, #5 Prescribed by: PARI PENA MD on 02/13/19 6628 Azithromycin (Azithromycin Tablet) 250 Mg Tablet, 250 MG PO DAILY for pna for 3 Days, #3 Prescribed by: PARI PENA MD on 02/13/19 1152 Scheduled PRN Guaifenesin/Dextromethorphan (Guaifenesin Dm Syrup) 5 Ml Syrup, 10 ML PO PRN Q6 HRS PRN for COUGH for 5 Days, #1 Prescribed by: PARI PENA MD on 02/13/19 1153 PARI PENA MD Feb 13, 2019 15:20
== END 2019-02-13 14:40 | disposition home or self-care (01) | DRG 194 ==
LOC: ER 11:29 → 5 NORTH 13:38
PROVIDERS: ADMIT Internal Medicine; ATTEND Internal Medicine
DX: J18.1 Lobar pneumonia, unspecified organism (principal); R65.10 Systemic inflammatory response syndrome (SIRS) of non-infectious origin without acute organ dysfunction; F41.9 Anxiety disorder, unspecified; M79.10 Myalgia, unspecified site
CPT/HCPCS: 36415; 71046; 80048; 80053; 83605; 85025; 87040; 87070; 87804; 87880; 96374; J0456; J0696; J1885; J7030; J7613; Q0144; Q0163; 99285-25